=== PATIENT | male | born 1995 | race Two or more races ===

== ENCOUNTER 2018-05-23 20:37 | Emergency (ER) | payer SELFPAY ==
[2018-05-23] MEDS ORDERED: LORazepam 2 MG/ML INJ IVP ONE (20:58)
[2018-05-23 21:16] LABS: PLATELET COUNT 317 10^3/uL (150-400)
--- NOTE | 2018-05-23 21:20 | EDPHY ---
H & P Stated Complaint: Epigastric pain, cant catch breath-2 days. Time Seen by Provider: 05/23/18 20:54 HPI/ROS: CHIEF COMPLAINT: Shortness of breath HISTORY OF PRESENT ILLNESS: Patient is a 22 year-old healthy man who comes to the emergency department complaining that he has felt short of breath for the last 3 days. He reports feeling like he is unable to take a full breath. He also complains of mild pain in both upper quadrants. No tenderness. No vomiting. No diarrhea. No fever. He states that the symptoms are constant. He denies high levels of stress or anxiety. Severity: Moderate Modifying factors: None REVIEW OF SYSTEMS: Constitutional: denies: chills, fever, recent illness, recent injury EENTM: denies: blurred vision, double vision, nose congestion Respiratory: denies: cough, shortness of breath Cardiac: denies: chest pain, irregular heart rate, lightheadedness, palpitations Gastrointestinal/Abdominal: denies: abdominal pain, diarrhea, nausea, vomiting, blood streaked stools Genitourinary: denies: dysuria, frequency, hematuria, pain Musculoskeletal: denies: joint pain, muscle pain Skin: denies: lesions, rash, jaundice, bruising Neurological: denies: headache, numbness, paresthesia, tingling, dizziness, weakness Hematologic/Lymphatic: denies: blood clots, easy bleeding, easy bruising Immunologic/allergic: denies: HIV/AIDS, transplant 10 systems reviewed and negative except as noted EXAM: GENERAL: Well-appearing, well-nourished and in no acute distress. HEAD: Atraumatic, normocephalic. EYES: Pupils equal round and reactive to light, extraocular movements intact, sclera anicteric, conjunctiva are normal. ENT: TMs normal, nares patent, oropharynx clear without exudates. Moist mucous membranes. NECK: Normal range of motion, supple without lymphadenopathy or JVD. LUNGS: Breath sounds clear to auscultation bilaterally and equal. No wheezes rales or rhonchi. HEART: Regular rate and rhythm without murmurs, rubs or gallops. ABDOMEN: Soft, nontender, normoactive bowel sounds. No guarding, no rebound. No masses appreciated. BACK: No CVA tenderness, no spinal tenderness, step-offs or deformities EXTREMITIES: Normal range of motion, no pitting or edema. No clubbing or cyanosis. NEUROLOGICAL: Cranial nerves II through XII grossly intact. Normal speech, normal gait. 5/5 strength, normal movement in all extremities, normal sensation , normal reflexes PSYCH: Normal mood, normal affect. SKIN: Warm, dry, normal turgor, no visible rashes or lesions. Source: Patient Exam Limitations: Language barrier (Dance Professor used) - Personal History Current Tetanus/Diphtheria Vaccine: Unsure Current Tetanus Diphtheria and Acellular Pertussis (TDAP): Unsure - Medical/Surgical History Hx Asthma: No Hx Chronic Respiratory Disease: No Hx Diabetes: No Hx Cardiac Disease: No Hx Renal Disease: No Hx Cirrhosis: No Hx Alcoholism: No Hx HIV/AIDS: No Hx Splenectomy or Spleen Trauma: No Other PMH: L foot fracture. - Family History Significant Family History: No pertinent family hx - Social History Smoking Status: Never smoked Alcohol Use: Sober Drug Use: None Constitutional: Initial Vital Signs Temperature (C) 37.1 C 05/23/18 20:45 Heart Rate 103 H 05/23/18 20:45 Respiratory Rate 18 05/23/18 20:45 Blood Pressure 119/76 05/23/18 20:45 O2 Sat (%) 99 05/23/18 20:45 O2 Delivery Mode Room Air Allergies/Adverse Reactions: No Known Allergies Allergy (Unverified 05/23/18 20:44) Home Medications: Medication Instructions Recorded Famotidine [Pepcid] 40 mg PO HS #30 tablet 05/23/18 Medical Decision Making - Diagnostics EKG Interpretation: An EKG obtained and was read and documented in trace view. Please see trace view for full reading and report. Sinus rhythm, no acute ischemic changes Imaging Results: Imaging Impressions Chest X-Ray 05/23/18 20:58 Impression: No acute pulmonary disease. Imaging: Discussed imaging studies w/ pilates instructor Radiologist ED Course/Re-evaluation: 10:15 p.m. We discussed the patient's lab and imaging results which are all very reassuring. He is feeling better after Ativan. I performed a bedside ultrasound of his gallbladder. No visible stones. No wall thickening or pericolic fluid. Whose limited because common bile duct was not well visualized. No tenderness and no sonographic Echeverria's. We discussed the possibilities that this may be anxiety related. The patient agrees that is possible. We also discussed starting him on Pepcid to see if this helps. He would like to do this. He will follow up with [facility] next week. We discussed indications for returning to the emergency department. Differential Diagnosis: Partial list of the Differential diagnosis considered include but were not limited to; peptic ulcer disease, anxiety and although unlikely based on the history and physical exam, I also considered PE, arrhythmia, pneumonia, pneumothorax. I discussed these differential diagnoses and the plan with the patient as well as the usual and expected course. The patient understands that the diagnosis is provisional and that in medicine we are not always correct and that further workup is often warranted. Usual and customary warnings were given. All of the patient's questions were answered. The patient was instructed to return to the emergency department should the symptoms at all worsen or return, otherwise to followup with the physician as we discussed. - Data Points Laboratory Results: Laboratory Results 05/23/18 21:10 05/23/18 21:10 05/23/18 05/23/18 05/23/18 21:13 21:10 21:10 WBC RBC Hgb Hct MCV MCH MCHC RDW Plt Count MPV Neut % (Auto) Lymph % (Auto) [place] % (Auto) Eos % (Auto) Baso % (Auto) Nucleat RBC Rel Count Absolute Neuts (auto) Absolute Lymphs (auto) Absolute Monos (auto) Absolute Eos (auto) Absolute Basos (auto) Absolute Nucleated RBC Immature Gran % Immature Gran # D-Dimer < 0.27 ug/mLFEU ug/mLFEU (0.00-0.50) Sodium 140 mEq/L mEq/L (135-145) Potassium 3.4 mEq/L mEq/L (3.3-5.0) Chloride 105 mEq/L mEq/L (97-110) Carbon Dioxide 21 mEq/l L mEq/l (22-31) Anion Gap 14 mEq/L mEq/L (6-14) BUN 14 mg/dL mg/dL (7-23) Creatinine 1.0 mg/dL mg/dL (0.7-1.3) Estimated GFR > 60 Glucose 95 mg/dL mg/dL (70-100) Calcium 10.5 mg/dL H mg/dL (8.5-10.4) Total Bilirubin 1.2 mg/dL mg/dL (0.1-1.4) Conjugated Bilirubin 0.1 mg/dL mg/dL (0.0-0.5) Unconjugated Bilirubin 1.1 mg/dL mg/dL (0.0-1.1) AST 23 IU/L IU/L (17-59) ALT 24 IU/L IU/L (21-72) Alkaline Phosphatase 139 IU/L H IU/L (38-126) POC Troponin I 0.00 ng/mL ng/mL (0.00-0.08) Total Protein 8.4 g/dL H g/dL (6.3-8.2) Albumin 4.8 g/dL g/dL (3.5-5.0) Lipase 80 IU/L IU/L (23-300) 05/23/18 21:10 WBC 7.71 10^3/uL 10^3/uL (3.80-9.50) RBC 5.66 10^6/uL 10^6/uL (4.40-6.38) Hgb 18.2 g/dL H g/dL (13.7-17.5) Hct 48.5 % % (40.0-51.0) MCV 85.7 fL fL (81.5-99.8) MCH 32.2 pg pg (27.9-34.1) MCHC 37.5 g/dL H g/dL (32.4-36.7) RDW 12.2 % % (11.5-15.2) Plt Count 317 10^3/uL 10^3/uL (150-400) MPV 8.9 fL fL (8.7-11.7) Neut % (Auto) 44.5 % % (39.3-74.2) Lymph % (Auto) 45.8 % H % (15.0-45.0) [place] % (Auto) 6.2 % % (4.5-13.0) Eos % (Auto) 3.0 % % (0.6-7.6) Baso % (Auto) 0.4 % % (0.3-1.7) Nucleat RBC Rel Count 0.0 % % (0.0-0.2) Absolute Neuts (auto) 3.43 10^3/uL 10^3/uL (1.70-6.50) Absolute Lymphs (auto) 3.53 10^3/uL H 10^3/uL (1.00-3.00) Absolute Monos (auto) 0.48 10^3/uL 10^3/uL (0.30-0.80) Absolute Eos (auto) 0.23 10^3/uL 10^3/uL (0.03-0.40) Absolute Basos (auto) 0.03 10^3/uL 10^3/uL (0.02-0.10) Absolute Nucleated RBC 0.00 10^3/uL 10^3/uL (0-0.01) Immature Gran % 0.1 % % (0.0-1.1) Immature Gran # 0.01 10^3/uL 10^3/uL (0.00-0.10) D-Dimer Sodium Potassium Chloride Carbon Dioxide Anion Gap BUN Creatinine Estimated GFR Glucose Calcium Total Bilirubin Conjugated Bilirubin Unconjugated Bilirubin AST ALT Alkaline Phosphatase POC Troponin I Total Protein Albumin Lipase Medications Given: Discontinued Medications Lorazepam (Ativan Injection) 0.5 mg IVP EDNOW ONE Stop: 05/23/18 20:59 Last Admin: 05/23/18 21:22 Dose: 0.5 mg Point of Care Test Results: Chemistry 05/23/18 21:13 POC Troponin I 0.00 ng/mL ng/mL (0.00-0.08) Departure - Departure Disposition: Home, Routine, Self-Care Clinical Impression: Epigastric pain Dyspnea Qualifiers: Dyspnea type: unspecified Qualified Code(s): R06.00 - Dyspnea, unspecified Condition: Fair Instructions: Dyspnea (ED), Epigastric Pain (ED) Referrals: NONE *PRIMARY CARE P,. [Primary Care Provider] - As per Instructions [facility],. [Clinic] - As per Instructions Prescriptions: Famotidine [Pepcid] 40 mg PO HS #30 tablet Print Language: [place]
--- NOTE | 2018-05-23 21:23 | CPEKG ---
Test Reason : OPEN Blood Pressure : / mmHG Vent. Rate : 075 BPM Atrial Rate : 074 BPM P-R Int : 143 ms QRS Dur : 095 ms QT Int : 374 ms P-R-T Axes : 069 088 058 degrees QTc Int : 418 ms Sinus rhythm Probable left atrial enlargement Confirmed by Satish Covarrubias ([id number]) on 05/23/2018 9:23:43 PM Referred By: Confirmed By:Satish Covarrubias
[2018-05-23 22:31] VITALS: BP 117/84
== END 2018-05-23 22:29 | disposition home or self-care (01) ==
DX: R10.13 Epigastric pain (principal); R06.00 Dyspnea, unspecified
CPT/HCPCS: 84484-PO; 96374; J2060

== ENCOUNTER 2018-05-25 04:23 | Emergency (ER) | payer SELFPAY ==
[2018-05-25] MEDS ORDERED: MAG HYDROX/AL HYDROX/SIMETH 30 ML UDCUP PO ONE (04:40)
[2018-05-25] MEDS ORDERED: HYOSCYAMINE SULFATE 0.125 MG TAB PO ONE (04:40)
[2018-05-25] MEDS ORDERED: LIDOCAINE 2% VISCOUS 15 ML UDCUP PO ONE (04:40)
[2018-05-25] MEDS ORDERED: FAMOTIDINE 20 MG/NACL 50 ML IV ONE (04:40)
[2018-05-25 04:56] LABS: PLATELET COUNT 256 10^3/uL (150-400)
--- NOTE | 2018-05-25 05:13 | EDPHY ---
H & P Stated Complaint: SEEN THE OTHER DAY, STILL IN ABD PAIN., NOW WITH DIARRHEA Time Seen by Provider: 05/25/18 04:30 HPI/ROS: History obtained using [place]i video interpretation. HPI The patient presents with recurrent epigastric abdominal pain which is achy in nature and started to bother him again this morning at about 3:00 a.m.. The pain is epigastric and also in his left upper quadrant, does not radiate. It is not associated with any nausea or vomiting. He last ate a small meal of a hamburger and milk at 8:00 p.m.. He was seen in the emergency department 2 days ago for the same though associated with shortness of breath. Chest x-ray, EKG, labs were unremarkable at that time. He had a bedside right upper quadrant ultrasound. He was prescribed ranitidine and he has had 3 doses of this so far.. He has developed mild watery diarrhea since. REVIEW OF SYSTEMS 10 systems were reviewed and negative with the exception of the elements mentioned in the history of present illness. PMHx: History of left foot fracture Soc Hx: No alcohol use PHYSICAL General Appearance: Alert, no distress Eyes: Pupils equal and round no pallor or injection ENT, Mouth: Mucous membranes moist Respiratory: There are no retractions, lungs are clear to auscultation Cardiovascular: Regular rate and rhythm Gastrointestinal: Abdomen is soft and tender in the epigastrium without rebound or guarding, no masses, bowel sounds normal Neurological: A&O, moves all extremities Skin: Warm and dry, no rashes Musculoskeletal: Neck is supple non tender Extremities: symmetrical, full range of motion Psychiatric: Patient is oriented X 3, there is no agitation Source: Patient Exam Limitations: No limitations - Personal History Current Tetanus/Diphtheria Vaccine: Yes Current Tetanus Diphtheria and Acellular Pertussis (TDAP): Yes - Medical/Surgical History Hx Asthma: No Hx Chronic Respiratory Disease: No Hx Diabetes: No Hx Cardiac Disease: No Hx Renal Disease: No Hx Cirrhosis: No Hx Alcoholism: No Hx HIV/AIDS: No Hx Splenectomy or Spleen Trauma: No Other PMH: L foot fracture. - Social History Smoking Status: Never smoked Constitutional: Initial Vital Signs Temperature (C) 36.7 C 05/25/18 04:24 Heart Rate 87 05/25/18 04:24 Respiratory Rate 18 05/25/18 04:24 Blood Pressure 96/82 H 05/25/18 04:24 O2 Sat (%) 97 05/25/18 04:24 O2 Delivery Mode Room Air Allergies/Adverse Reactions: No Known Allergies Allergy (Unverified 05/25/18 04:28) Home Medications: Medication Instructions Recorded Famotidine [Pepcid] 40 mg PO HS #30 tablet 05/23/18 Medical Decision Making ED Course/Re-evaluation: 22-year-old male who is healthy presents with several days of epigastric abdominal pain, worse at night. He was seen 2 days ago in the emergency department and now his symptoms have returned, starting at 3:00 a.m.. He now has some diarrhea. Here, IV line was established and the patient was given famotidine as well as a GI cocktail. Labs were checked and were unchanged from previous. - Data Points Laboratory Results: Laboratory Results 05/25/18 04:43 05/25/18 04:43 05/25/18 05/25/18 04:43 04:43 WBC 8.70 10^3/uL 10^3/uL (3.80-9.50) RBC 5.46 10^6/uL 10^6/uL (4.40-6.38) Hgb 17.6 g/dL H g/dL (13.7-17.5) Hct 47.8 % % (40.0-51.0) MCV 87.5 fL fL (81.5-99.8) MCH 32.2 pg pg (27.9-34.1) MCHC 36.8 g/dL H g/dL (32.4-36.7) RDW 12.3 % % (11.5-15.2) Plt Count 256 10^3/uL 10^3/uL (150-400) MPV 9.3 fL fL (8.7-11.7) Neut % (Auto) 77.7 % H % (39.3-74.2) Lymph % (Auto) 14.5 % L % (15.0-45.0) [place] % (Auto) 4.5 % % (4.5-13.0) Eos % (Auto) 3.0 % % (0.6-7.6) Baso % (Auto) 0.2 % L % (0.3-1.7) Nucleat RBC Rel Count 0.0 % % (0.0-0.2) Absolute Neuts (auto) 6.76 10^3/uL H 10^3/uL (1.70-6.50) Absolute Lymphs (auto) 1.26 10^3/uL 10^3/uL (1.00-3.00) Absolute Monos (auto) 0.39 10^3/uL 10^3/uL (0.30-0.80) Absolute Eos (auto) 0.26 10^3/uL 10^3/uL (0.03-0.40) Absolute Basos (auto) 0.02 10^3/uL 10^3/uL (0.02-0.10) Absolute Nucleated RBC 0.00 10^3/uL 10^3/uL (0-0.01) Immature Gran % 0.1 % % (0.0-1.1) Immature Gran # 0.01 10^3/uL 10^3/uL (0.00-0.10) Sodium 140 mEq/L mEq/L (135-145) Potassium 3.7 mEq/L mEq/L (3.3-5.0) Chloride 105 mEq/L mEq/L (97-110) Carbon Dioxide 24 mEq/l mEq/l (22-31) Anion Gap 11 mEq/L mEq/L (6-14) BUN 19 mg/dL mg/dL (7-23) Creatinine 1.0 mg/dL mg/dL (0.7-1.3) Estimated GFR > 60 Glucose 109 mg/dL H mg/dL (70-100) Calcium 9.8 mg/dL mg/dL (8.5-10.4) Total Bilirubin 0.9 mg/dL mg/dL (0.1-1.4) AST 22 IU/L IU/L (17-59) ALT 24 IU/L IU/L (21-72) Alkaline Phosphatase 123 IU/L IU/L (38-126) Total Protein 7.7 g/dL g/dL (6.3-8.2) Albumin 4.4 g/dL g/dL (3.5-5.0) Lipase 106 IU/L IU/L (23-300) Medications Given: Discontinued Medications Al Hydroxide/Mg Hydroxide (Maalox Susp) 30 ml PO ONCE ONE Stop: 05/25/18 04:41 Last Admin: 05/25/18 04:56 Dose: 30 ml Hyoscyamine Sulfate (Levsin, Hyomax-Sl) 0.25 mg PO ONCE ONE Stop: 05/25/18 04:41 Last Admin: 05/25/18 04:56 Dose: 0.25 mg Famotidine/Sodium Chloride (Pepcid 20 Mg (Premix)) 50 mls @ 200 mls/hr IV EDNOW ONE Stop: 05/25/18 04:54 Last Admin: 05/25/18 04:54 Dose: 50 mls Lidocaine (Lidocaine 2% Viscous) 15 ml PO ONCE ONE Stop: 05/25/18 04:41 Last Admin: 05/25/18 04:56 Dose: 15 ml Departure - Departure Disposition: Home, Routine, Self-Care Clinical Impression: Epigastric abdominal pain Condition: Good Instructions: Gastritis (ED), Diet for Stomach Ulcers and Gastritis (ED) Referrals: [facility],. [Clinic] - As per Instructions Print Language: [place]i
[2018-05-25 05:53] VITALS: BP 126/74
== END 2018-05-25 05:54 | disposition home or self-care (01) ==
DX: R10.13 Epigastric pain (principal); R19.7 Diarrhea, unspecified
CPT/HCPCS: 96365